=== PATIENT | male | born 1945 | race Caucasian/White ===

== ENCOUNTER 2021-07-07 10:21 | Emergency (ER) | payer MEDICARE, SELFPAY ==
[2021-07-07 10:29] VITALS: BP 125/60; PULSE 80; RESP 16; TEMP 36.3; O2SAT 98
--- NOTE | 2021-07-07 10:46 | ED.GENADULT ---
HPI - General Adult General Chief complaint: Skin/Abscess/Foreign Body Stated complaint: left shoulder wound History of Present Illness HPI narrative: 76-year-old male comes in complaining of left shoulder pain with drainage. Patient states he was seen approximately a couple weeks ago by his primary care provider who diagnosed him with shingles on that shoulder area never improved continue to get worse. Patient states that the area has gotten warm and is draining serosanguineous fluid and has drainage he is placing a Band-on it daily it is becoming harder for him to lift the arm Related Data Home Medications Medication Instructions Recorded Confirmed albuterol sulfate 90 mcg INHALATION DIRECTED 07/07/21 07/07/21 amitriptyline 25 mg PO DAILY 07/07/21 07/07/21 aspirin 81 mg PO DAILY 07/07/21 07/07/21 carvedilol 12.5 mg PO DAILY 07/07/21 07/07/21 empagliflozin [Jardiance] 25 mg PO DAILY 07/07/21 07/07/21 gabapentin 300 mg PO BID 07/07/21 07/07/21 insulin glargine [Lantus U-100 100 unit SUBCUT DIRECTED 07/07/21 07/07/21 Insulin] levothyroxine 112 mcg PO DAILY 07/07/21 07/07/21 lisinopril 2.5 mg PO DAILY 07/07/21 07/07/21 multivit with min-folic acid 0.4 tablet PO DAILY 07/07/21 07/07/21 [Adult One Daily Multivitamin] pravastatin 10 mg PO DAILY 07/07/21 07/07/21 Allergies Allergy/AdvReac Type Severity Reaction Status Date / Time No Known Allergies Allergy Unverified 12/12/15 12:39 Review of Systems Review of Systems: Shoulder drainage All systems reviewed & are unremarkable except as noted in HPI and below PMFSH Comments At time as signature, I have reviewed and agree with nursing past medical, social, surgical and family history. Please see nursing chart for further information. There is no relevant family history pertinent to the presenting complaint. Exam Narrative: GENERAL:Well-appearing, well-nourished, and in no acute distress. HEAD:Normocephalic, EYES: PERRLA ENT: Nares clear, no rhinorrhea or epistaxis. Mucous membranes moist. CHEST: Clear to auscultation. No respiratory distress. HEART: Regular rate and rhythm. . EXTREMITIES: Decreased range of motion. Left shoulder has areas purpleish areas that are poking through the skin with serosanguineous drainage warm to touch as well as painful to touch mildly edematous SKIN: Warm, dry, no rash. NEURO: No focal deficits. Alert and oriented x3. Course Course Emergency Course: Had a discussion with patient informed her that we would attempt to try some oral antibiotics but patient needs to follow-up with dermatology [facility] a list of director of convention services have been given to patient Vital Signs Vital signs: Vital Signs Temperature 97.4 F L 07/07/21 10:29 Pulse Rate 80 07/07/21 10:29 Respiratory Rate 16 07/07/21 10:29 Blood Pressure 125/60 07/07/21 10:29 Pulse Oximetry 98 07/07/21 10:29 Temperature 97.4 F L 07/07/21 10:29 Pulse Rate 80 07/07/21 10:29 Respiratory Rate 16 07/07/21 10:29 Blood Pressure 125/60 07/07/21 10:29 Pulse Oximetry 98 07/07/21 10:29 Medical Decision Making Differential Diagnosis Differential Diagnosis: Questionable cancerous, shingles, abscess, Vital Signs Vital Signs: Vital Signs Temperature 97.4 F L 07/07/21 10:29 Pulse Rate 80 07/07/21 10:29 Respiratory Rate 16 07/07/21 10:29 Blood Pressure 125/60 07/07/21 10:29 Pulse Oximetry 98 07/07/21 10:29 Temperature 97.4 F L 07/07/21 10:29 Pulse Rate 80 07/07/21 10:29 Respiratory Rate 16 07/07/21 10:29 Blood Pressure 125/60 07/07/21 10:29 Pulse Oximetry 98 07/07/21 10:29 Discharge Plan Discharge Clinical Impression: Bleeding pigmented skin lesion Patient Disposition: Home, Self-Care Condition: Stable Instructions: Antibiotic Form, Abscess (ED) Additional Instructions: Abscess with warm compresses to the area 20-30 minutes 4-6 times a day and as needed elevate the area if possible antibiotic as directed
== END 2021-07-07 11:33 | disposition home or self-care (01) ==
PROVIDERS: Emergency Provider Nurse Practitioner Family; PCP Family Medicine
DX: L81.9 Disorder of pigmentation, unspecified (principal); E78.00 Pure hypercholesterolemia, unspecified; I10 Essential (primary) hypertension; E11.9 Type 2 diabetes mellitus without complications; E05.90 Thyrotoxicosis, unspecified without thyrotoxic crisis or storm
CPT/HCPCS: 99213; G0463